=== PATIENT | female | born 1950 | race Caucasian/White ===

== ENCOUNTER 2025-05-03 08:16 | Inpatient (IN) ==
[2025-04-20 11:10] LABS: Basophils # (Auto) 0.03 K/mcL (0.00-0.30); Basophils % (Auto) 0.3 % (0.0-2.0); Eosinophils # (Auto) 0.14 K/mcL (0.00-0.70); Eosinophils % (Auto) 1.4 % (0.0-7.0); Hematocrit 43.2 % (34.1-44.9); Hemoglobin 14.1 g/dL (11.2-15.7); Lymphocytes # (Auto) 2.11 K/mcL (1.50-4.80); Lymphocytes % (Auto) 21.2 % (15.5-49.0); Mean Corpuscular HGB Conc 32.6 g/dL (31.0-36.0); Monocytes # (Auto) 0.83 K/mcL (0.10-0.90); Monocytes % (Auto) 8.4 % (1.0-12.0); Neutrophils % (Auto) 68.5 % (38.0-78.0); Platelet Count 309 K/mcL (140-440); RBC 4.69 M/mcL (3.59-5.38); WBC 9.9 K/mcL (4.5-11.0)
[2025-04-20 11:28] LABS: Estimated Average Glucose(eAG) 148 mg/dL; Hemoglobin A1C 6.8 % Hgb (4.0-6.0)
[2025-04-20 12:13] LABS: ALT/SGPT 27 U/L (<40); AST/SGOT 29 U/L (<32); Albumin 4.4 gm/dL (3.2-5.2); Albumin/Globulin Ratio 1.3 (1.0-2.3); Alkaline Phosphatase 52 U/L (39-117); Anion Gap 10.0 (8.0-16.0); Bilirubin,Total 0.4 mg/dL (0.1-1.0); Blood Urea Nitrogen 21 mg/dL (8-23); Calcium 10.0 mg/dL (8.6-10.4); Carbon Dioxide 26 mmol/L (22-30); Chloride 100 mmol/L (96-108); Globulin 3.4 gm/dL (2.2-3.7); Glucose 121 mg/dL (70-105); Potassium 4.3 mmol/L (3.3-5.1); Sodium 136 mmol/L (133-145)
[2025-04-20 12:21] LABS: Bacteria,Urine Few /hpf (0); Bilirubin,Urine NEGATIVE (Negative); Color,Urine LT. YELLOW; Glucose,Urine (UA) >=1000 mg/dL (Negative); Ketones,Urine NEGATIVE (Negative); Leukocyte Esterase,Urine NEGATIVE /uL (Negative); Mucus,Urine Few /hpf; PH,Urine 6.0 (5.0-9.0); Protein,Urine NEGATIVE (Negative); Specific Gravity,Urine 1.010 (1.000-1.035); Urobilinogen,Urine 0.2 mg/dL
[2025-04-20 12:23] LABS: INR 1.3 (0.9-1.1); Prothrombin Time 17.4 sec (11.9-14.5)
[2025-05-03] MEDS: oxyCODONE 10 MG TAB.ER.12H PO SCH (09:02)
[2025-05-03] MEDS: PREGABALIN 75 MG CAPSULE PO SCH (09:02)
[2025-05-03] MEDS: ACETAMINOPHEN 500 MG TABLET PO SCH (09:03)
[2025-05-03] MEDS: CELECOXIB 200 MG CAPSULE PO SCH (09:03)
[2025-05-03] MEDS ORDERED: ROCURONIUM 10 MG/ML ML IV ONE (09:33)
[2025-05-03] MEDS ORDERED: LIDOCAINE 2% PF 5 ML VIAL ONE (09:33)
[2025-05-03] MEDS ORDERED: ONDANSETRON 4 MG/2 ML VIAL ONE (09:33)
[2025-05-03] MEDS ORDERED: PROPOFOL 200 MG/20 ML VIAL IV ONE (09:33)
[2025-05-03] MEDS ORDERED: MIDAZOLAM 2 MG/2 ML VIAL ONE (09:33)
[2025-05-03] MEDS ORDERED: TRANEXAMIC ACID 1,000 MG/10 ML VIAL ONE (09:33)
[2025-05-03] MEDS ORDERED: fentaNYL 100 MCG/2 ML VIAL ONE (09:39)
[2025-05-03] MEDS ORDERED: ROPIVACAINE HCL/PF 30 ML VIAL IJ ONE (09:40)
[2025-05-03] MEDS: ceFAZolin 2 GM in DEXTROSE 5% IN WATER 50 ML IV SCH (10:00)
[2025-05-03] MEDS ORDERED: BENZOCAINE/MENTHOL 1 LOZENGE PO PRN ×2 (11:14→14:14)
[2025-05-03] MEDS ORDERED: IPRATROPIUM/ALBUTEROL 3 ML AMPUL.NEB NEB PRN (11:15)
[2025-05-03] MEDS ORDERED: SUGAMMADEX SODIUM 200 MG/2 ML VIAL IV ONE (11:18)
[2025-05-03] MEDS: BUPIVACAINE 0.5% 50 ML VIAL IJ ONE (11:23)
[2025-05-03] MEDS: TRANEXAMIC ACID 1,000 MG/10 ML VIAL IV ONE ×2 (11:49→14:40)
[2025-05-03] MEDS: KETOROLAC 15 MG/ML VIAL IV PRN (11:59)
[2025-05-03] MEDS: HYDROmorphone 0.5 MG/0.5 ML SYRINGE IV PRN (12:00)
[2025-05-03] MEDS: ONDANSETRON 4 MG/2 ML VIAL IV PRN ×2 (12:05→15:30)
[2025-05-03] MEDS: fentaNYL 100 MCG/2 ML VIAL IV PRN (12:15)
[2025-05-03] MEDS ORDERED: KETOROLAC 15 MG/ML VIAL IV PRN (14:14)
[2025-05-03] MEDS ORDERED: ONDANSETRON 4 MG/2 ML VIAL IV PRN (14:14)
[2025-05-03] MEDS ORDERED: ACETAMINOPHEN 325 MG TABLET PO PRN (14:14)
[2025-05-03] MEDS ORDERED: TEMAZEPAM 15 MG CAPSULE PO PRN (14:14)
[2025-05-03] MEDS ORDERED: HYDROcodone/APAP 10/325MG TABLET PO PRN (14:14)
[2025-05-03] MEDS: 0.9 % SODIUM CHLORIDE 1,000 ML IV SCH (16:01)
[2025-05-03] MEDS: OMEPRAZOLE 20 MG CAPSULE PO SCH (17:25)
[2025-05-03] MEDS: METOCLOPRAMIDE 10 MG/2 ML VIAL IV PRN (20:59)
[2025-05-03] MEDS ORDERED: DOCUSATE SODIUM 100 MG CAPSULE PO SCH (21:00)
[2025-05-03] MEDS: METOPROLOL SUCCINATE 50 MG TAB.XL.24H PO SCH (21:00)
[2025-05-03] MEDS: ASPIRIN 81 MG TAB.CHEW CHEWED SCH (21:00)
[2025-05-03] MEDS ORDERED: DABIGATRAN ETEXILATE 150 MG PO SCH (21:00)
[2025-05-03] MEDS ORDERED: ASPIRIN 81 MG TAB.CHEW CHEWED SCH (21:00)
[2025-05-03] MEDS: 0.9 % SODIUM CHLORIDE 10 ML SYRINGE IV SCH ×2 (21:28→23:24)
[2025-05-04] MEDS: DOCUSATE SODIUM 100 MG CAPSULE PO SCH (00:14)
[2025-05-04] MEDS: CALCIUM CARBONATE 500 MG TAB.CHEW PO SCH (00:15)
[2025-05-04] MEDS: ATORVASTATIN 20 MG TABLET PO SCH (00:15)
[2025-05-04] MEDS: VITAMIN D3 25 MCG TABLET PO SCH (00:16)
[2025-05-04] MEDS: HYDROCORTISONE 10 MG TABLET PO SCH (00:53)
[2025-05-04] MEDS: HYDROCORTISONE SOD SUCC 100 MG VIAL IV ONE (07:10)
[2025-05-04 07:40] LABS: Basophils # (Auto) 0 K/mcL (0.00-0.30); Basophils % (Auto) 0 % (0.0-2.0); Eosinophils # (Auto) 0.02 K/mcL (0.00-0.70); Eosinophils % (Auto) 0.1 % (0.0-7.0); Hematocrit 39.5 % (34.1-44.9); Hemoglobin 12.7 g/dL (11.2-15.7); Lymphocytes # (Auto) 1.31 K/mcL (1.50-4.80); Lymphocytes % (Auto) 7.1 % (15.5-49.0); Mean Corpuscular HGB Conc 32.2 g/dL (31.0-36.0); Monocytes # (Auto) 1.90 K/mcL (0.10-0.90); Monocytes % (Auto) 10.3 % (1.0-12.0); Neutrophils % (Auto) 82.0 % (38.0-78.0); Platelet Count 265 K/mcL (140-440); RBC 4.23 M/mcL (3.59-5.38); WBC 18.4 K/mcL (4.5-11.0)
[2025-05-04 07:59] LABS: ALT/SGPT 17 U/L (<40); AST/SGOT 22 U/L (<32); Albumin 4.1 gm/dL (3.2-5.2); Albumin/Globulin Ratio 1.3 (1.0-2.3); Alkaline Phosphatase 42 U/L (39-117); Anion Gap 10.0 (8.0-16.0); Bilirubin,Direct 0.3 mg/dL (<0.3); Bilirubin,Total 0.5 mg/dL (0.1-1.0); Blood Urea Nitrogen 19 mg/dL (8-23); Calcium 9.0 mg/dL (8.6-10.4); Carbon Dioxide 22 mmol/L (22-30); Chloride 102 mmol/L (96-108); Globulin 3.1 gm/dL (2.2-3.7); Glucose 129 mg/dL (70-105); Phosphorous 3.2 mg/dL (2.5-4.5); Potassium 4.5 mmol/L (3.3-5.1); Sodium 134 mmol/L (133-145); Triglycerides 74 mg/dL (<150); Uric Acid 4.7 mg/dL (2.5-8.0)
[2025-05-04] MEDS: HYDROCORTISONE SOD SUCC IV ONE (08:01)
[2025-05-04] MEDS: SODIUM CHLORIDE 0.9% IV ONE (08:01)
[2025-05-04] MEDS: LEVOTHYROXINE 50 MCG TABLET PO SCH (08:08)
[2025-05-04 08:09] LABS: Thyroid Stimulating Hormone 1.71 uIU/mL (0.27-5.01)
[2025-05-04] MEDS: 0.9 % SODIUM CHLORIDE 1,000 ML IV SCH (08:10)
[2025-05-04] MEDS ORDERED: ONDANSETRON 4 MG/2 ML VIAL IV PRN (08:22)
[2025-05-04] MEDS ORDERED: SENNOSIDES 1 TABLET PO PRN (08:22)
[2025-05-04] MEDS ORDERED: OMEGA PO SCH (09:00)
[2025-05-04] MEDS ORDERED: LISINOPRIL 20 MG TABLET PO SCH (09:00)
[2025-05-04] MEDS ORDERED: POTASSIUM CHLORIDE 10 MEQ TABLET PO SCH (09:00)
[2025-05-04] MEDS ORDERED: SPIRONOLACTONE 25 MG TABLET PO SCH (09:00)
[2025-05-04] MEDS ORDERED: MULTIVIT,THER IRON,CA,FA & MIN 1 TABLET PO SCH (09:00)
[2025-05-04] MEDS ORDERED: GLUCOSAMINE CHONDROITIN PO SCH (09:00)
[2025-05-04] MEDS ORDERED: HYDROCORTISONE 10 MG TABLET PO SCH (09:00)
[2025-05-04] MEDS: CETIRIZINE 10 MG TABLET PO SCH (09:18)
[2025-05-04] MEDS: FOLIC ACID 1 MG TABLET PO SCH (09:18)
[2025-05-04] MEDS: SILDENAFIL 25 MG PO SCH (09:31)
[2025-05-04] MEDS: 0.9 % SODIUM CHLORIDE 10 ML SYRINGE IV SCH (14:47)
[2025-05-04] MEDS: MECLIZINE 25 MG TABLET PO SCH (14:51)
[2025-05-04] MEDS: HEPARIN 5,000 UNIT/ML VIAL SQ SCH (20:30)
[2025-05-04] MEDS: ACETAMINOPHEN 325 MG TABLET PO PRN (22:02)
[2025-05-05 07:45] LABS: Basophils # (Auto) 0.01 K/mcL (0.00-0.30); Basophils % (Auto) 0.1 % (0.0-2.0); Eosinophils # (Auto) 0.01 K/mcL (0.00-0.70); Eosinophils % (Auto) 0.1 % (0.0-7.0); Hematocrit 38.4 % (34.1-44.9); Hemoglobin 12.5 g/dL (11.2-15.7); Lymphocytes # (Auto) 1.18 K/mcL (1.50-4.80); Lymphocytes % (Auto) 7.0 % (15.5-49.0); Mean Corpuscular HGB Conc 32.6 g/dL (31.0-36.0); Monocytes # (Auto) 1.41 K/mcL (0.10-0.90); Monocytes % (Auto) 8.4 % (1.0-12.0); Neutrophils % (Auto) 83.9 % (38.0-78.0); Platelet Count 259 K/mcL (140-440); RBC 4.10 M/mcL (3.59-5.38); WBC 16.9 K/mcL (4.5-11.0)
[2025-05-05 08:00] LABS: ALT/SGPT 14 U/L (<40); AST/SGOT 18 U/L (<32); Albumin 3.9 gm/dL (3.2-5.2); Albumin/Globulin Ratio 1.3 (1.0-2.3); Alkaline Phosphatase 49 U/L (39-117); Anion Gap 10.0 (8.0-16.0); Bilirubin,Direct 0.3 mg/dL (<0.3); Bilirubin,Total 0.5 mg/dL (0.1-1.0); Blood Urea Nitrogen 17 mg/dL (8-23); Calcium 9.2 mg/dL (8.6-10.4); Carbon Dioxide 20 mmol/L (22-30); Chloride 104 mmol/L (96-108); Globulin 3.0 gm/dL (2.2-3.7); Glucose 138 mg/dL (70-105); Phosphorous 2.1 mg/dL (2.5-4.5); Potassium 4.5 mmol/L (3.3-5.1); Sodium 134 mmol/L (133-145); Triglycerides 73 mg/dL (<150); Uric Acid 3.5 mg/dL (2.5-8.0)
[2025-05-05] MEDS ORDERED: MECLIZINE 25 MG TABLET PO PRN (08:04)
[2025-05-05] MEDS: SODIUM PHOSPHATE 15 MMOL in DEXTROSE 5% IN WATER 250 ML IV ONE (08:50)
[2025-05-05] MEDS: SPIRONOLACTONE 25 MG TABLET PO SCH (09:40)
[2025-05-05] MEDS: LISINOPRIL 20 MG TABLET PO SCH (09:42)
[2025-05-05] MEDS: METOPROLOL SUCCINATE 50 MG TAB.XL.24H PO SCH (09:42)
[2025-05-05] MEDS: HYDROCORTISONE SOD SUCC 100 MG VIAL IV SCH (14:09)
[2025-05-05] MEDS: 0.9 % SODIUM CHLORIDE 1,000 ML IV SCH (18:46)
[2025-05-05] MEDS ORDERED: HYDROCORTISONE 10 MG TABLET PO SCH (21:00)
[2025-05-05] MEDS: TEMAZEPAM 15 MG CAPSULE PO PRN (21:09)
[2025-05-06 06:11] LABS: Basophils # (Auto) 0.03 K/mcL (0.00-0.30); Basophils % (Auto) 0.2 % (0.0-2.0); Eosinophils # (Auto) 0.05 K/mcL (0.00-0.70); Eosinophils % (Auto) 0.4 % (0.0-7.0); Hematocrit 36.8 % (34.1-44.9); Hemoglobin 11.9 g/dL (11.2-15.7); Lymphocytes # (Auto) 2.02 K/mcL (1.50-4.80); Lymphocytes % (Auto) 14.9 % (15.5-49.0); Mean Corpuscular HGB Conc 32.3 g/dL (31.0-36.0); Monocytes # (Auto) 1.01 K/mcL (0.10-0.90); Monocytes % (Auto) 7.5 % (1.0-12.0); Neutrophils % (Auto) 76.7 % (38.0-78.0); Platelet Count 224 K/mcL (140-440); RBC 3.89 M/mcL (3.59-5.38); WBC 13.5 K/mcL (4.5-11.0)
[2025-05-06 06:38] LABS: ALT/SGPT 15 U/L (<40); AST/SGOT 18 U/L (<32); Albumin 3.8 gm/dL (3.2-5.2); Albumin/Globulin Ratio 1.3 (1.0-2.3); Alkaline Phosphatase 46 U/L (39-117); Anion Gap 8.0 (8.0-16.0); Bilirubin,Direct 0.3 mg/dL (<0.3); Bilirubin,Total 0.6 mg/dL (0.1-1.0); Blood Urea Nitrogen 14 mg/dL (8-23); Calcium 9.4 mg/dL (8.6-10.4); Carbon Dioxide 24 mmol/L (22-30); Chloride 105 mmol/L (96-108); Globulin 2.9 gm/dL (2.2-3.7); Glucose 130 mg/dL (70-105); Phosphorous 1.8 mg/dL (2.5-4.5); Potassium 4.1 mmol/L (3.3-5.1); Sodium 137 mmol/L (133-145); Triglycerides 74 mg/dL (<150); Uric Acid 2.8 mg/dL (2.5-8.0)
[2025-05-06] MEDS: HYDROCORTISONE 10 MG TABLET PO SCH (07:46)
[2025-05-06] MEDS ORDERED: ENALAPRILAT 1.25 MG/ML VIAL IV PRN (08:06)
[2025-05-06] MEDS ORDERED: LABETALOL HCL 20 MG/4 ML VIAL IV PRN (08:06)
[2025-05-06] MEDS ORDERED: DEXTROSE 31 GM ORAL.SUSP PO PRN (08:10)
[2025-05-06] MEDS ORDERED: DEXTROSE 50% 50 ML VIAL IV PRN (08:10)
[2025-05-06] MEDS ORDERED: METOPROLOL TARTRATE 5 MG/5 ML VIAL IV PRN (08:18)
[2025-05-06] MEDS: PHOSPHORUS 250 MG TABLET PO SCH (09:05)
[2025-05-06] MEDS: NEUTRA PHOS 1 PACKET PO SCH (09:10)
[2025-05-06] MEDS: INSULIN LISPRO 1 UNIT/0.01 ML UNIT SQ SCH (12:13)
[2025-05-06] MEDS ORDERED: HYDROCORTISONE SOD SUCC 100 MG VIAL IV SCH (14:00)
[2025-05-06] MEDS ORDERED: HYDROCORTISONE 10 MG TABLET PO SCH (21:00)
== END 2025-05-06 12:50 | disposition home or self-care (01) | DRG 483 ==
LOC: SUR 08:16 → MEDSUR 15:35 → ICU 05-04 07:49
PROVIDERS: ADMIT Student in an Organized Health Care Education/Training Program; ATTEND Internal Medicine